=== PATIENT | male | born 1975 ===

== ENCOUNTER 2017-04-12 12:11 | Emergency (ER) | payer OTHER ==
[2017-04-12 12:48] VITALS: BP 108/64; PULSE 97; RESP 16; TEMP 97; O2SAT 97
--- NOTE | 2017-04-12 14:01 | ED PDOC ---
HPI: Head Injury Time Seen by Provider: 04/12/17 12:55 Chief Complaint (Nursing): Eye Problem Chief Complaint (Provider): Headache History Per: Patient History/Exam Limitations: no limitations Injury Occurred (Timing): Days Ago: (90) Onset/Duration Of Symptoms: Intermittent Episodes Patient States: Struck With Object Additional Complaint(s): Marcellus Bright is a 42 year old male who presents for evaluation of intermittent headache for 3 months. States that at work 3 months ago, a box weighing 20-25 lbs fell off a shelf and hit the left side of his head/forehead. He did not seek medical attention at that time. Since then, he reports intermittent headache, described as sharp and stabbing, to the left side of head with associated nausea. No vomiting. Denies any symptoms at present, but he is concerned about persistence of headaches. Last took Tylenol at home 2 days ago. At the time of the incident, patient denies any LOC, changes in vision, alteration in behavior, nausea or vomiting. PMD: None Past Medical History Reviewed: Historical Data, Nursing Documentation, Vital Signs Vital Signs: Last Vital Signs Temp 97 F L 04/12/17 12:44 Pulse 97 H 04/12/17 12:44 Resp 16 04/12/17 12:44 BP 108/64 04/12/17 12:44 Pulse Ox 97 04/12/17 12:44 - Medical History PMH: No Chronic Diseases - Surgical History Surgical History: No Surg Hx - Family History Family History: States: Unknown Family Hx - Social History Current smoker - smoking cessation education provided: Yes Alcohol: Social Drugs: Denies - Home Medications Home Medications: Ambulatory Orders Medication Instructions Recorded Acetaminophen [Acetaminophen 8 650 mg PO TID PRN #21 tablet.er 04/12/17 Hour] - Allergies Allergies/Adverse Reactions: Allergies Allergy/AdvReac Type Severity Reaction Status Date / Time No Known Allergies Allergy Verified 04/12/17 12:44 Review of Systems ROS Statement: Except As Marked, All Systems Reviewed And Found Negative Eyes: Negative for: Vision Change Gastrointestinal: Positive for: Nausea. Negative for: Vomiting Neurological: Positive for: Headache (intermittent). Negative for: Dizziness ( LOC, behavior changes) Physical Exam - Reviewed Nursing Documentation Reviewed: Yes Vital Signs Reviewed: Yes - Physical Exam Appears: Positive for: Well, Non-toxic, No Acute Distress Head Exam: Positive for: NORMOCEPHALIC (with no scalp tenderness, hematoma, or facial tenderness) Skin: Positive for: Normal Color, Warm, Dry Eye Exam: Positive for: Normal appearance, EOMI, PERRL. Negative for: Nystagmus , Periorbital tenderness (or ecchymosis), Conjunctival injection ENT: Positive for: Normal ENT Inspection Neck: Positive for: Normal, Painless ROM, Supple. Negative for: Decreased ROM, Pain On Movement Of Neck Cardiovascular/Chest: Positive for: Regular Rate, Rhythm. Negative for: Murmur Respiratory: Positive for: Normal Breath Sounds. Negative for: Accessory Muscle Use, Respiratory Distress Gastrointestinal/Abdominal: Positive for: Normal Exam, Soft. Negative for: Tenderness, Distended, Guarding Back: Positive for: Normal Inspection. Negative for: Vertebral Tenderness Extremity: Positive for: Normal ROM. Negative for: Pedal Edema, Deformity Neurologic/Psych: Positive for: Alert, paediatric thoracic physician II-XII (intact), Oriented (x3), Mood/ Affect (appropriate), Cerebellar Tests (normal), Gait (steady). Negative for: Motor/Sensory Deficits, Aphasia, Facial Droop - ECG O2 Sat by Pulse Oximetry: 97 (RA) Pulse Ox Interpretation: Normal Medical Decision Making Medical Decision Making: Initial Impression: Closed head injury, probable concussion Time: 13:22 Plan: * CT Head w/o contrast * Tylenol 650 mg PO 14:[address] FINDINGS: HEMORRHAGE: No acute parenchymal, subarachnoid or extra-axial hemorrhage. BRAIN: No mass effect or edema. No atrophy or chronic microvascular ischemic changes. VENTRICLES: No obstructive hydrocephalus. CALVARIUM: Calvarium intact. PARANASAL SINUSES: Unremarkable as visualized. No significant inflammatory changes. Note made of bilateral neva bullosa. MASTOID AIR CELLS: Unremarkable as visualized. No inflammatory changes. OTHER FINDINGS: None. IMPRESSION: No acute intracranial hemorrhage. Patient informed of negative CT results. On reevaluation, patient is pain free and stable for discharge. Neuro exam remains non-focal. Advised to follow up with the clinic. There is agreement to discharge plan. Return if symptoms persist or worsen. Scribe Attestation: Documented by Karli Velasquez, acting as a scribe for Rosa Gutierrez PA-C Provider Scribe Attestation: All medical record entries made by the Scribe were at my direction and personally dictated by me. I have reviewed the chart and agree that the record accurately reflects my personal performance of the history, physical exam, medical decision making, and the department course for this patient. I have also personally directed, reviewed, and agree with the discharge instructions and disposition. Disposition - Clinical Impression Clinical Impression: Closed head injury, Concussion - Patient ED Disposition Is Patient to be Admitted: No Counseled Patient/Family Regarding: Studies Performed, Diagnosis, Need For Followup - Disposition Referrals: [facility] [Outside] Disposition: Routine/Home Disposition Time: 15:18 Condition: STABLE Prescriptions: Acetaminophen [Acetaminophen 8 Hour] 650 mg PO TID PRN #21 tablet.er PRN Reason: Headache Instructions: Concussion in Adults, Postconcussion Syndrome, Closed Head Injury Forms: [employer] ([place]) Print Language: [place] - POA Present On Arrival: None
--- NOTE | 2017-04-12 14:52 | CT ---
PROCEDURE: CT scan brain dated 04/12/2017. HISTORY: Headache. COMPARISON: None available. TECHNIQUE: Axial computed tomography images were obtained through the head/brain without intravenous contrast. Radiation dose: Total exam DLP = 956.71 mGy-cm. This CT exam was performed using one or more of the following dose reduction techniques: Automated exposure control, adjustment of the mA and/or kV according to patient size, and/or use of iterative reconstruction technique. FINDINGS: HEMORRHAGE: No acute parenchymal, subarachnoid or extra-axial hemorrhage. BRAIN: No mass effect or edema. No atrophy or chronic microvascular ischemic changes. VENTRICLES: No obstructive hydrocephalus. CALVARIUM: Calvarium intact. PARANASAL SINUSES: Unremarkable as visualized. No significant inflammatory changes. Note made of bilateral neva bullosa. MASTOID AIR CELLS: Unremarkable as visualized. No inflammatory changes. OTHER FINDINGS: None. IMPRESSION: No acute intracranial hemorrhage.
== END 2017-04-12 15:33 | disposition home or self-care (01) ==
LOC: H.ER 12:11
DX: R07.81 Pleurodynia (principal); W22.8XXA Striking against or struck by other objects, initial encounter; Y99.0 Civilian activity done for income or pay; F17.200 Nicotine dependence, unspecified, uncomplicated

== ENCOUNTER 2018-01-29 10:17 | Day surgery (SDC) | payer SELFPAY ==
[2018-01-29] MEDS ORDERED: Lidocaine 1% Inj (20ml) ONE (11:22)
--- NOTE | 2018-01-29 11:56 | CP.SDSHP ---
Same Day Surgery H & P - History Proposed Procedure: US guided FNA of left thyroid nodule Pre-Op Diagnosis: left thyroid nodule - Allergies Allergies: Allergies No Known Allergies Allergy (Verified 04/12/17 12:44) - Physical Exam Vital Signs: Vital Signs 01/29/18 01/29/18 11:03 11:20 Temperature 98.3 F Pulse Rate 57 L 57 L Respiratory 18 Rate Blood Pressure 104/70 O2 Sat by Pulse 97 Oximetry Mental Status: Alert & Oriented x3 - Impression Impression: Pt with a 3.5 cm left thyroid mass. Plan US guided FNA. Pt. Evaluated Today:Candidate for Anesthesia & Procedure: No - Date & Time Date: 01/29/18 Time: 11:50 Short Stay Discharge - Short Stay Discharge Admitting Diagnosis/Reason for Visit: R22.21 Disposition: HOME/ ROUTINE
--- NOTE | 2018-01-29 11:58 | PCM.SURG1 ---
Surgeon's Initial Post Op Note - Surgeon's Notes Surgeon: Tenzin Gardner MD Parole Director: NONE Type of Anesthesia: Local Pre-Operative Diagnosis: left thyroid nodule Operative Findings: US showed a solid 3.5 cm left thyroid mass Post-Operative Diagnosis: left thyroid nodule Operation Performed: US guided FNA of left thyroid nodule. Five passes made with a 25 g needle. Specimen/Specimens Removed: 25 g FNA x 5 passes Estimated Blood Loss: EBL {In ML}: 1 Blood Products Given: N/A Drains Used: No Drains Post-Op Condition: Good Date of Surgery/Procedure: 01/29/18 Time of Surgery/Procedure: 11:55
[2018-01-29 11:59] VITALS: TEMP 97.2; O2SAT 100
[2018-01-29 12:15] VITALS: BP 1062/64; PULSE 57; RESP 20
== END 2018-01-29 12:40 | disposition home or self-care (01) ==
LOC: H.OPSURG 10:17
PROVIDERS: ATTEND Family Medicine
DX: E04.1 Nontoxic single thyroid nodule (principal)

== ENCOUNTER 2018-03-19 10:22 | Day surgery (SDC) | payer SELFPAY ==
[2018-03-19 12:33] VITALS: BMI 22.1
[2018-03-19 12:39] VITALS: O2SAT 100
[2018-03-19] MEDS ORDERED: Lidocaine 1% Inj (20ml) ONE (13:28)
[2018-03-19 13:29] VITALS: PULSE 60; TEMP 97.2
--- NOTE | 2018-03-19 13:34 | CP.SDSHP ---
Same Day Surgery H & P - History Proposed Procedure: US guided FNA Pre-Op Diagnosis: Enlarged left thyroid nodule - Allergies Allergies: Allergies No Known Allergies Allergy (Verified 03/19/18 12:33) - Physical Exam Vital Signs: Vital Signs 03/19/18 03/19/18 12:25 13:05 Temperature 97.6 F 97.2 F L Pulse Rate 53 L 60 Respiratory 18 Rate Blood Pressure 103/68 108/68 O2 Sat by Pulse 100 Oximetry Mental Status: Alert & Oriented x3 - Impression Impression: Pt with a 2.5 cm left thyroid nodule. Plan US guided FNA. Pt. Evaluated Today:Candidate for Anesthesia & Procedure: No - Date & Time Date: 03/19/18 Time: 13:25 Short Stay Discharge - Short Stay Discharge Admitting Diagnosis/Reason for Visit: LT THYROID NODULE Disposition: HOME/ ROUTINE
--- NOTE | 2018-03-19 13:35 | PCM.SURG1 ---
Surgeon's Initial Post Op Note - Surgeon's Notes Surgeon: Tenzin Gardner MD Video News Editor: NONE Type of Anesthesia: Local Pre-Operative Diagnosis: Enlarged left thyroid nodule Operative Findings: US shows a 2.5 cm predominantly solid left thyroid nodule Post-Operative Diagnosis: Enlarged left thyroid nodule Operation Performed: US guided FNA Specimen/Specimens Removed: 25 g FNA x 5 passes Estimated Blood Loss: EBL {In ML}: 0 Blood Products Given: N/A Drains Used: No Drains Post-Op Condition: Good Date of Surgery/Procedure: 03/19/18 Time of Surgery/Procedure: 13:30
[2018-03-19 14:06] VITALS: BP 122/76; RESP 14
--- NOTE | 2018-03-21 12:52 | US ---
PROCEDURE: Date of Procedure: 03/19/2018 PROCEDURE: 1. Ultrasound guided FNA of left thyroid nodule, CPT 70290 2. Ultrasound guidance for FNA, 43639 Medications: 3cc 1% Lidocaine HISTORY: Enlarged left thyroid nodule. TECHNIQUE: Following informed consent and procedure time-out, a limited ultrasound patient's neck confirmed the presence of a 2.5 Cm complex left thyroid nodule which is predominantly solid. After the patient's neck was prepped and draped in the usual sterile fashion, the skin was anesthetized with 1% lidocaine. Ultrasound-guided fine needle aspiration was then performed of the dominant left thyroid nodule. A total of 5 passes were made into the nodule with 25 gauge needle under ultrasound guidance. The FNA specimen was sent for routine pathology and genetics. Post biopsy ultrasound showed no hematoma. IMPRESSION: Ultrasound-guided FNA of the dominant left thyroid nodule.
== END 2018-03-19 14:15 | disposition home or self-care (01) ==
LOC: H.OPSURG 10:22
PROVIDERS: ATTEND Family Medicine
DX: E04.1 Nontoxic single thyroid nodule (principal)